=== PATIENT | male | born 1985 | race African-American/Black ===

== ENCOUNTER 2021-05-13 15:11 | Emergency (ER) | payer OTHER ==
[2021-05-13 15:44] VITALS: BP 129/84; PULSE 84; TEMP 98.8; BMI 25.8
== END 2021-05-13 17:18 | disposition home or self-care (01) ==
LOC: JER 15:11
DX: Z11.52 Encounter for screening for COVID-19 (principal)
CPT/HCPCS: 99282-25; C9803; U0003; U0005